=== PATIENT | female | born 2000 | race Caucasian/White ===

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

== ENCOUNTER 2023-02-22 16:15 | Emergency (ER) | payer MEDICAID, SELFPAY ==
[2023-02-22 16:16] VITALS: BP 118/72; PULSE 81; RESP 16; TEMP 36.3; O2SAT 100; BMI 21.7
--- NOTE | 2023-02-22 16:47 | EDS_ITS ---
HPI History of Present Illness Chief Complaint: Other, Pain/Inj Narrative Narrative: 22-year-old female with bilateral armpit pain. She has some bumps in her armpits. Patient states the bumps really started today but she had some itching in her armpits over the last week. She last shaved 2 weeks ago. No systemic signs or symptoms. Patient denies any breast pain or tenderness. She denies any new breast lumps. She feels otherwise well. She went to urgent care today and was referred to the ER. [facility] Home Medications doxycycline hyclate 100 mg capsule 100 mg PO BID #14 caps 02/22/23 [Rx Last Taken Unknown] Allergy/AdvReac Type Severity Reaction Status Date / Time No Known Allergies Allergy Verified 02/22/23 16:16 Social History Smoking Status: Never smoker ROS ROS ED Constitutional Constitutional ED: Denies chills, fever(s) or sweats Eyes Eyes: Denies blurry vision or change in vision ENT ENT ED: Denies ear pain or sore throat Cardiovascular Cardiovascular: Denies chest pain, palpitations or racing heartbeat Respiratory/Chest Respiratory/Chest: Denies cough, dyspnea or sputum Gastrointestinal Gastrointestinal: Denies abdominal pain, constipation, diarrhea, nausea or vomiting Genitourinary Genitourinary ED: Denies dysuria, hematuria or urinary frequency Musculoskeletal Musculoskeletal: Denies arthralgias, myalgias or neck pain Integumentary Reports rash and other; Denies abscess or Abrasions Neurologic Neurologic: Denies headache(s), paresthesias or weakness Psychiatric Psychiatric: Denies anxiety, depression, suicidal ideation or suicidal thoughts Endocrine Endocrinology: Denies polydipsia or polyuria EXAM Physical Exam Const Vital Signs: 02/22/23 16:16 02/22/23 16:25 Temperature 97.3 F L Temperature Source Temporal Pulse Rate 81 Respiratory Rate 16 Respiratory Effort Normal Non-Labored Respiratory Pattern Normal Blood Pressure 118/72 Blood Pressure Mean 87 Pulse Ox 100 Oxygen Delivery Method Room Air Positive well nourished General Appearance ED: NAD HEENT Reports moist mucous membranes Eyes PERRL and EOMs intact bilaterally Resp normal respiratory effort Cardio regular rate and regular rhythm Extremity Extremity Narrative: Bilateral axilla have some tenderness to palpation bilaterally. There is no deangelo thema, warmth. There are some areas of lymphadenopathy but no fluctuant masses. These are very small areas bilaterally. Hair in the axilla is partially grown. Neuro oriented x3 Sensorium / Orientation: alert Psych mental status grossly normal Skin Skin Narrative: As described above MDM MDM MDM Narrative Medical decision making narrative: Patient presenting with irritation to the axilla bilaterally. She shaved 2 weeks ago and has that she began her hair started, and it appears to be irritated. There does appear to be some lymphadenopathy. Patient is concerned that it could be due to her deodorant and she is having an inflammatory reaction to it. Patient states he is going to discontinue use of this. There is nothing to incise or drain here. I will start her on doxycycline and have her follow-up with general surgery. Return precautions were discussed. Impression: 1. Bilateral axillary folliculitis Lab Data Attestation: I reviewed the patient's lab results. Discharge Plan Triage Chief Complaint: Other, Pain/Inj ED Provider: Rojas Mendoza Dx/Rx/DC Orders Instructions: ED Folliculitis Prescriptions: New doxycycline hyclate 100 mg capsule 100 mg PO BID Qty: 14 0RF Primary Care Provider: Care Physician,No Primary Referrals: Fatou Mendoza MD [Med Staff - Active Staff] - 3-5 Days Care Physician,No Primary [Primary Care Provider] - Disposition Disposition: Home, Self Care
[2023-02-22 17:07] VITALS: RESP 16
== END 2023-02-22 17:09 | disposition home or self-care (01) ==
LOC: ED 17:07
PROVIDERS: Emergency Provider Student in an Organized Health Care Education/Training Program; Visit Provider Student in an Organized Health Care Education/Training Program
DX: L02.421 Furuncle of right axilla (principal); L02.422 Furuncle of left axilla
CPT/HCPCS: 99282

== ENCOUNTER 2023-06-23 16:17 | Emergency (ER) | payer MEDICAID, SELFPAY ==
[2023-06-23 16:18] VITALS: BP 131/77; PULSE 98; RESP 16; TEMP 36.7; O2SAT 100; BMI 21.5
--- NOTE | 2023-06-23 16:43 | CT_ITS ---
STUDY: CT ABDOMEN AND PELVIS WITH CONTRAST REASON FOR EXAM: Female, 22 years old. Right lower quadrant abdominal pain RADIATION DOSAGE (If Supplied By Facility): CTDIvol = ( 8.00 ) mGy, DLP = ( 291.70 ) mGycm TECHNIQUE: Transaxial images were obtained from the dome of the diaphragm to the symphysis pubis without oral contrast. Oral and amp; IV Gastrografin and amp; 75mL Isovue-370 was administered. Sagittal and coronal images were reconstructed. Individualized dose optimization techniques were used for this CT. COMPARISON: None. FINDINGS: The visualized lung bases are unremarkable. The visualized portions of the heart are within normal limits. Normal liver. Normal gallbladder and extrahepatic biliary system. Normal spleen. Normal pancreas. Normal bilateral adrenal glands. Normal right kidney. Normal left kidney. Normal visualized stomach. Normal small intestine. Moderate to abundant fecal debris within the colon. The appendix is visualized and appears normal. Normal abdominal aorta. Normal inferior vena cava. Normal retroperitoneum. Normal urinary bladder. The uterus is anteverted with IUD in place. Mild free fluid in the cul-de-sac. 2.8 cm hypoattenuated structure within the right ovary suggestive of cyst. Normal abdominal wall. Normal osseous structures. CT/Abdomen/Pelvis WITH Contrast IMPRESSION: Mild free fluid in the cul-de-sac with right ovarian cyst measuring 2.8 cm. Further characterization with pelvic ultrasound recommended if clinically indicated. No acute appendicitis or bowel obstruction. Normal abdominal viscera. Electronically Signed: Kiah Flanagan MD at 20:02 EST ,
--- OUTSIDE RECORDS SUMMARY | 2023-06-23 16:48 | XMS RPT_ITS | CCD ---
Author Name Unknown Address [id number] [place] [address] Organization [facility] Care Team Providers Care Shredder Operator Name Role Phone Unavailable Primary Care Provider Unavailmariam Aguilar MD, Vanda Camarillo Primary Care Provider [phone] Vanda Aguilar MD Primary Care Provider [phone] LEANA GALAN Referring Unavailable AGUILAR, VANDA Primary Care Unavailable LEANA GALAN Attending Unavailable AGUILAR, VANDA Primary Care Unavailable ROBYN SALES Attending Unavailable AGUILAR, VANDA Primary Care Unavailable LEANA GALAN Attending Unavailable LEANA GALAN Referring Unavailable AGUILAR, VANDA Primary Care Unavailable Unavailable Primary Care Provider UnavailEunice Cuello MD Primary Care Provider SAFKO, EUNICE L Primary Care Unavailable SAFKO, EUNICE L Referring Unavailable SAFKO, EUNICE L Primary Care Unavailable SAFKO, EUNICE L Attending Unavailable SAFKO, EUNICE L Referring Unavailable SAFKO, EUNICE L Primary Care Unavailable SAFKO, EUNICE L Attending Unavailable Allergies Allergy Classification Reported Allergen(s) Allergy Type Date of Onset Reaction(s) Facility (2 sources) Amoxicillin; Translations: [AMOXICILLIN] Drug Allergy 10-20-2022 Rash [facility] Medications Current Medications Medication Drug Class(es) Dates Sig (Normalized) Sig (Original) FLUoxetine 20 mg oral capsule (7 sources) Serotonin Reuptake Inhibitor Start: 08-14-2022 take 1 capsule by mouth once daily in the morning FLUoxetine (PROzac) 20 MG capsule Take 20 mg by mouth every morning. 0 08/14/2022 Active Completed/Discontinued Medications Medication Drug Class(es) Dates Sig (Normalized) Sig (Original) escitalopram 20 mg oral tablet (4 sources) Serotonin Reuptake Inhibitor Start: 05-26-2021 End: 08-21-2022 take 1 tablet by mouth in the morning escitalopram (Lexapro) 20 MG tablet Take 20 mg by mouth in the morning. 0 05/26/2021 08/21/2022 Discontinued (Therapy completed) Problems Active Problems Problem Classification Problem Date Documented Date Episodic/Chronic Cardiac dysrhythmias (1 source) Palpitations; Translations: [Palpitations] Onset: 04-20-2023 Episodic Esophageal disorders (2 sources) Gastroesophageal reflux disease without esophagitis; Translations: [Gastro-esophageal reflux disease without esophagitis] Onset: 05-01-2023 05-01-2023 Chronic Headache; including migraine (1 source) Headache; Translations: [Headache, unspecified headache type] 05-01-2023 Episodic Headache; including migraine (1 source) Headache; including migraine; Translations: [Headache, unspecified headache type] Onset: 05-01-2023 Immunizations and screening for infectious disease (3 sources) Viral screening status; Translations: [Encounter for screening for other viral diseases] Onset: 04-20-2023 05-01-2023 Episodic Nonmalignant breast conditions (1 source) Pain of breast; Translations: [Mastodynia] 01-17-2023 Episodic Other and unspecified benign neoplasm (4 sources) Fibroadenoma of breast; Translations: [Benign neoplasm of left breast] Episodic Other and unspecified benign neoplasm (2 sources) Fibroadenoma of left breast; Translations: [Benign neoplasm of left breast] 01-16-2023 Episodic Other female genital disorders (2 sources) Abnormal uterine and vaginal bleeding, unspecified; Translations: [Abnormal uterine and vaginal bleeding, unspecified] Onset: 08-21-2022 Chronic Other skin disorders (1 source) Localized swelling, mass and lump, upper limb, bilateral; Translations: [Localized superficial swelling, mass, or lump] 02-22-2023 Episodic Other skin disorders (1 source) Nonscarring hair loss, unspecified; Translations: [Hair loss] Onset: 04-20-2023 Episodic Other upper respiratory infections (1 source) Acute pharyngitis; Translations: [Acute pharyngitis, unspecified] Episodic Unclassified (2 sources) Breast Mass; Translations: [Breast Mass] Onset: 12-25-2022 Past or Other Problems Problem Classification Problem Date Documented Da te Episodic/Chronic Other and unspecified benign neoplasm (2 sources) Benign neoplasm of left breast; Translations: [Benign neoplasm of left breast] Onset: 08-21-2022 Episodic Results Test Name Value Interpretation Reference Range Facil ity Vital Signs Date Time Vital Sign Value Performing Clinician Ghulam lopez 05-01-2023 14:44-0500 Body height 154.9 cm Eunice Nur MD Work Phone: [facility] 05-01-2023 14:44-0500 Body weight 50.35 kg Eunice Nur MD Work Phone: [facility] 05-01-2023 14:44-0500 Diastolic blood pressure 74 mm[Hg] Eunice Nur MD Work Phone: [facility] 05-01-2023 14:44-0500 Heart rate 84 /min Eunice Nur MD Work Phone: [facility] 05-01-2023 14:44-0500 Respiratory rate 16 /min Eunice Nur MD Work Phone: [facility] 05-01-2023 14:44-0500 SaO2% (BldA) [Mass fraction] 99 % Eunice Nur MD Work Phone: [facility] 05-01-2023 14:44-0500 Systolic blood pressure 112 mm[Hg] Eunice Nur MD Work Phone: [facility] 02-22-2023 14:58-0400 Body temperature 98.91 [degF] Omega Wills RENAL CASE MANAGER.FRAME BUILDER Work Phone: [facility] 02-22-2023 14:58-0400 Body weight 51.71 kg Omega Wills RENAL CASE MANAGER.FRAME BUILDER Work Phone: [facility] 02-22-2023 14:58-0400 Diastolic blood pressure 64 mm[Hg] Omega Wills RENAL CASE MANAGER.FRAME BUILDER Work Phone: [facility] 02-22-2023 14:58-0400 Heart rate 72 /min Omega Wills RENAL CASE MANAGER.FRAME BUILDER Work Phone: [facility] 02-22-2023 14:58-0400 Respiratory rate 20 /min Omega Wills APRN.FRAME BUILDER Work Phone: [facility] 02-22-2023 14:58-0400 SaO2% (BldA) [Mass fraction] 99 % Omega Wills APRN.FRAME BUILDER Work Phone: [facility] 02-22-2023 14:58-0400 Systolic blood pressure 116 mm[Hg] Omega Wills APRN.FRAME BUILDER Work Phone: [facility] 01-11-2023 13:08-0400 Body height 154.9 cm Leana Galan MD Work Phone: [facility] 01-11-2023 13:08-0400 Body mass index (BMI) [Ratio] 20.78 kg/m2 Leana Galan MD Work Phone: [facility] 01-11-2023 13:08-0400 Body weight 49.9 kg Leana Galan MD Work Phone: [facility] 12-25-2022 14:21-0400 Body mass index (BMI) [Ratio] 20.78 kg/m2 Robyn Sales MD Work Phone: [facility] 12-25-2022 14:21-0400 Body weight 49.9 kg Robyn Sales MD Work Phone: [facility] 12-25-2022 14:21-0400 Diastolic blood pressure 62 mm[Hg] Robyn Sales MD Work Phone: [facility] 12-25-2022 14:21-0400 Heart rate 73 /min Robyn Sales MD Work Phone: [facility] 12-25-2022 14:21-0400 Systolic blood pressure 98 mm[Hg] Robyn Sales MD Work Phone: [facility] 08-21-2022 13:53-0400 Body height 154.9 cm Leana Galan MD Work Phone: [facility] 08-21-2022 13:53-0400 Body mass index (BMI) [Ratio] 20.41 kg/m2 Leana Galan MD Work Phone: [facility] 08-21-2022 13:53-0400 Body weight 48.99 kg Leana Galan MD Work Phone: [facility] 08-21-2022 13:53-0400 Diastolic blood pressure 77 mm[Hg] Leana Galan MD Work Phone: [facility] 08-21-2022 13:53-0400 Heart rate 67 /min Leana Galan MD Work Phone: [facility] 08-21-2022 13:53-0400 Systolic blood pressure 114 mm[Hg] Leana Galan MD Work Phone: [facility] 01-25-2022 19:11-0400 Body height 154.9 cm Suzette Dusz RENAL CASE MANAGER.FRAME BUILDER Work Phone: [facility] 01-25-2022 19:11-0400 Body temperature 98.6 [degF] Suzette Dusz RENAL CASE MANAGER.FRAME BUILDER Work Phone: [facility] 01-25-2022 19:11-0400 Body weight 48.08 kg Suzette Dusz RENAL CASE MANAGER.FRAME BUILDER Work Phone: [facility] 01-25-2022 19:11-0400 Diastolic blood pressure 72 mm[Hg] Suzette Dusz RENAL CASE MANAGER.FRAME BUILDER Work Phone: [facility] 01-25-2022 19:11-0400 Heart rate 60 /min Suzette Dusz RENAL CASE MANAGER.FRAME BUILDER Work Phone: [facility] 01-25-2022 19:11-0400 Respiratory rate 18 /min Suzette Dusz RENAL CASE MANAGER.FRAME BUILDER Work Phone: [facility] 01-25-2022 19:11-0400 SaO2% (BldA) [Mass fraction] 98 % Suzette Dusz RENAL CASE MANAGER.FRAME BUILDER Work Phone: [facility] 01-25-2022 19:11-0400 Systolic blood pressure 112 mm[Hg] Suzette Dusz RENAL CASE MANAGER.FRAME BUILDER Work Phone: [facility] Encounters Encounter Date Encounter Type Care Provider Facility Start: 05-01-2023 End: 05-02-2023 ambulatory EUNICE NUR Facility:[facility] Start: 05-01-2023 End: 05-01-2023 Patient encounter procedure Eunice Nur MD Work Phone: [facility] Procedures Date Procedure Procedure Detail Performing Clinician Start: 01-11-2023 Us breast uni real t emily with image limited Leana Galan MD Work Phone: Start: 01-25-2022 STREP A MOLECULAR (POC) [facility] Provider Plan of Treatment Date Care Activity Detail Author Start: 2052 Zoster Vaccines (1 of 2) Zoster Vaccines (1 of 2) [facility] Start: 01-01-2025 DTaP/Tdap/Td Vaccines (7 - Td or Tdap) DTaP/Tdap/Td Vaccines (7 - Td or Tdap) [facility] Start: 01-01-2025 Urine microalbumin profile DTaP,Tdap,Td Vaccine (7 - Td or Tdap) [facility] Start: 07-16-2023 End: 07-16-2023 Patient encounter procedure 07/16/2023 3:00 PM EST Appointment [facility] [address] [place] [address] [facility] Start: 05-19-2023 Chlamydia Screening (18-24) Chlamydia Screening (18-24) [facility] Start: 05-19-2023 GC (Gonorrhea) Screening (18-24) GC (Gonorrhea) Screening (18-24) [facility] Start: 05-01-2023 End: 07-31-2023 HERPES SIMPLEX TYPE 1 AND 2 IG [facility] Work Phone: Immunizations Immunization Date Immunization Notes Care Provider Fa cility 04-20-2023 influenza, injectabl e, quadrivalent, contains preservative Eunice Nur MD Work Phone: [facility] 07-05-2021 Pfizer SARS-CoV-2 Vaccination Leana Galan MD Work Phone: [facility] 06-07-2020 influenza, injectabl e, quadrivalent, preservative free Eunice Nur MD Work Phone: [facility] 06-07-2020 influenza virus vacc ine, unspecified formulation Leana Galan MD Work Phone: [facility] 01-27-2019 meningococcal B vacc ine, recombinant, OMV, adjuvanted Eunice Nur MD Work Phone: [facility] 08-14-2018 influenza, injectabl e, quadrivalent, preservative free Eunice Nur MD Work Phone: [facility] 08-14-2018 meningococcal B vacc ine, recombinant, OMV, adjuvanted Eunice Nur MD Work Phone: [facility] 08-14-2018 meningococcal polysaccharide (groups A, C, Y and W-135) diphtheria toxoid conjugate vaccine (MCV4P) Eunice Nur MD Work Phone: [facility] 06-21-2017 hepatitis A vaccine, pediatric/adolescent dosage, 2 dose schedule Eunice Nur MD Work Phone: [facility] 06-21-2017 Human Papillomavirus 9-valent vaccine Eunice Nur MD Work Phone: [facility] 01-01-2015 hepatitis A vaccine, pediatric/adolescent dosage, 2 dose schedule Eunice Nur MD Work Phone: [facility] 01-01-2015 HPV, unspecified formulation Eunice Nur MD Work Phone: [facility] 01-01-2015 meningococcal polysaccharide (groups A, C, Y and W-135) diphtheria toxoid conjugate vaccine (MCV4P) Eunice Nur MD Work Phone: [facility] 01-01-2015 tetanus toxoid, redu vicky diphtheria toxoid, and acellular pertussis vaccine, adsorbed Eunice Nur MD Work Phone: [facility] 09-03-2007 diphtheria, tetanus toxoids and acellular pertussis vaccine, unspecified formulation Eunice Nur MD Work Phone: [facility] 09-03-2007 measles, mumps and rubella virus vaccine Eunice Nur MD Work Phone: [facility] 09-03-2007 poliovirus vaccine, inactivated Eunice Nur MD Work Phone: [facility] 09-03-2007 varicella virus vaccine Fabian Nur MD Work Phone: [facility] 02-15-2005 measles, mumps and rubella virus vaccine Eunice Nur MD Work Phone: [facility] 02-15-2005 varicella virus vaccine Fabian Nur MD Work Phone: [facility] 02-22-2004 diphtheria, tetanus toxoids and acellular pertussis vaccine, unspecified formulation Eunice Nur MD Work Phone: [facility] 02-22-2004 haemophilus influenz ae type b conjugate and Hepatitis B vaccine Eunice Nur MD Work Phone: [facility] 02-22-2004 haemophilus influenz ae type b vaccine, PRP-T conjugate Eunice Nur MD Work Phone: [facility] 02-22-2004 hepatitis B vaccine, pediatric or pediatric/adolescent dosage Eunice Nur MD Work Phone: [facility] 02-22-2004 pneumococcal conjuga te vaccine, 7 valent Eunice Nur MD Work Phone: [facility] 02-22-2004 poliovirus vaccine, inactivated Eunice Nur MD Work Phone: [facility] 07-01-2003 diphtheria, tetanus toxoids and acellular pertussis vaccine, unspecified formulation Eunice Nur MD Work Phone: [facility] 06-11-2003 haemophilus influenz ae type b vaccine, PRP-T conjugate Eunice Nur MD Work Phone: [facility] 03-19-2003 pneumococcal conjuga te vaccine, 7 valent Eunice Nur MD Work Phone: [facility] 03-19-2003 poliovirus vaccine, inactivated Eunice Nur MD Work Phone: [facility] 02-16-2003 haemophilus influenz ae type b vaccine, PRP-T conjugate Euniec Nur MD Work Phone: [facility] 02-16-2003 poliovirus vaccine, inactivated Eunice Nur MD Work Phone: [facility] 01-13-2003 diphtheria, tetanus toxoids and acellular pertussis vaccine, unspecified formulation Eunice Nur MD Work Phone: [facility] 01-13-2003 pneumococcal conjuga te vaccine, 7 valent Eunice Nur MD Work Phone: [facility] 2002 hepatitis B vaccine, pediatric or pediatric/adolescent dosage Eunice Nur MD Work Phone: [facility] 2002 poliovirus vaccine, inactivated Eunice Nur MD Work Phone: [facility] 2002 diphtheria, tetanus toxoids and acellular pertussis vaccine, unspecified formulation Eunice Nur MD Work Phone: [facility] 2002 haemophilus influenz ae type b vaccine, PRP-T conjugate Eunice Nur MD Work Phone: [facility] 2002 hepatitis B vaccine, pediatric or pediatric/adolescent dosage Eunice Nur MD Work Phone: [facility] Payers Date Payer Category Payer Medicaid [id number] 2022 Medicaid [id number] 2021 Medicaid [id number] Social History Date Type Detail Facility [facility]: [facility] Start: 01-25-2022 Tobacco use and exposure Smoke less tobacco non-user [facility] Start: 2000 Sex Assigned At Not on file [facility] Start: 01-15-2022 End: 01-11-2023 Exposure to SARS-CoV-2 (event) Not sure [facility] Start: 08-21-2022 End: 01-11-2023 Alcohol intake Lifetime non-drinker (finding) [facility] Start: 2000 Sex Assigned At Female [facility] Start: 08-21-2022 End: 04-20-2023 History of Social function [facility] Start: 08-21-2022 End: 04-20-2023 Tobacco use panel [facility] Start: 03-30-2022 Gender identity Identifies as female gender (finding) [facility] Start: 03-30-2022 Sexual orientation Heterosexual (fin ding) [facility] Start: 05-01-2023 Alcohol intake Current drinke r of alcohol (finding) [facility] Adult Depression Screening Assessment 0 [facility] Start: 04-20-2023 Alcohol Comment rarely [facility] Clinical Notes 01-25-2022 to 05-01-2023 Patient InstructionsSaEunice neely MD - 05/01/2023 2:55 PM Omega Mullins APRN.FRAME BUILDER - 02/22/2023 3:17 PM EDTTelephone Encounter - Leana Galan MD - 01/17/2023 3:25 PM EDT Note Date & Type Note Facility 05-01-2023 Note HNO ID: [id number] Author: Eunice Nur MD Service: ? Author Type: Physician Type: Progress Notes Filed: 05/01/2023 3:31 PM Note Text: Eunice Nur [address] [place] [id number] Visit Date: May 01, 2023 Name: Ms.Amaya Graham Date of : 2000 MRN/E #: [id number] Chief Complaint: Headache (Follow up on new medication ) and Throat Problem (Feels like something is stuck in throat.) Nursing Intake: There are no exam notes on file for this visit. Subjective HPI Sam Graham is a 22 year old female. Headache This is a new problem. The current episode started more than 1 week ago. The problem occurs every few hours. The problem has not changed since onset.The pain is located in the Bilateral and frontal region. The pain is at a severity of 6/10. Associated symptoms include malaise/fatigue. Pertinent negatives include no anorexia, no fever, no chest pressure, no near-syncope, no orthopnea, no palpitations, no syncope, no shortness of breath, no nausea and no vomiting. She has tried triptan therapy for the symptoms. The treatment provided significant relief. Sore Throat This is a new problem. The current episode started 1 to 4 weeks ago. The problem has been unchanged. There has been no fever. Associated symptoms include headaches and trouble swallowing. Pertinent negatives include no abdominal pain, congestion, coughing, diarrhea, drooling, ear discharge, ear pain, hoarse voice, plugged ear sensation, neck pain, shortness of breath, stridor, swollen glands or vomiting. She has had no exposure to strep or mono. She has tried gargles for the symptoms. The treatment provided no relief. Headache is a pressure sensation. +globus sensation. Treated for strep which helped the pain. Tried numbing pain. ALLERGIES Allergen Reactions Amoxicillin Rash History reviewed. No pertinent past medical history. History reviewed. No pertinent surgical history. Social History Tobacco Use Smoking status: Never Smokeless tobacco: Never Vaping Use Vaping Use: Former Substances: Nicotine, THC, CBD, Flavoring Devices: Disposable, Pre-filled pod Substance Use Topics Alcohol use: Yes Comment: rarely Drug use: Not Currently FAMILY HISTORY Problem Relation Age of Onset Hypothyroidism Mother Diabetes Maternal Grandfather Kidney Disease Maternal Grandfather Review of Systems Constitutional: Positive for malaise/fatigue. Negative for chills and fever. HENT: Positive for sore throat and trouble swallowing. Negative for congestion, drooling, ear discharge, ear pain and hoarse voice. Respiratory: Negative for cough, shortness of breath, wheezing and stridor. Cardiovascular: Negative for chest pain, palpitations, orthopnea, syncope and near-syncope. Gastrointestinal: Negative for abdominal pain, anorexia, constipation, diarrhea, nausea and vomiting. Musculoskeletal: Negative for myalgias and neck pain. Neurological: Positive for headaches. Negative for dizziness. Current Outpatient Medications Medication Sig levonorgestrel (KYLEENA) 17.5 mcg/24 hrs (5 yrs) 19.5 mg IUD 1 Each by INTRAUTERINE route. SUMAtriptan (IMITREX) 50 mg tablet Take 1 tablet (50 mg) by mouth as needed for migraine headache (see administration instructions) (at onset of headache. May repeat after 2 hours.). May repeat dose after 2 hours if needed. Maximum daily dose is 200 mg per day. omeprazole (PRILOSEC) 40 mg capsule Take 1 capsule by mouth once daily. FLUoxetine (PROZAC) 10 mg capsule Take 1 capsule by mouth every morning. No current facility-administered medications for this visit. Objective BP 112/74 Pulse 84 Resp 16 Ht 5' 1 (1.55m) Wt 111 lb (50.3kg) SpO2 99% BMI 20.98 kg/(m2). Physical Exam Vitals reviewed. Constitutional: General: She is not in acute distress. HENT: Head: Normocephalic and atraumatic. Right Ear: External ear normal. Left Ear: External ear normal. Nose: Nose normal. Mouth/Throat: Pharynx: No oropharyngeal exudate. Eyes: General: No scleral icterus. Conjunctiva/sclera: Conjunctivae normal. Pupils: Pupils are equal, round, and reactive to light. Neck: Thyroid: No thyromegaly. Cardiovascular: Rate and Rhythm: Normal rate and regular rhythm. Heart sounds: Normal heart sounds. No murmur heard. No gallop. Pulmonary: Effort: Pulmonary effort is normal. No respiratory distress. Breath sounds: Normal breath sounds. No wheezing or rales. Abdominal: General: There is no distension. Palpations: Abdomen is soft. There is no mass. Tenderness: There is no abdominal tenderness. There is no guarding or rebound. Musculoskeletal: General: No tenderness. Normal range of motion. Cervical back: Normal range of motion and neck supple. Lymphadenopathy: Cervical: No cervical adenopathy. Skin: General: Skin is warm and dry. Findings: No erythema or rash. Neur (more content not included)... [facility] 05-01-2023 Instructions Eunice Nur MD - 05/01/2023 3:04 PM EST Images from the original note were not included. Gastroesophageal Reflux Disease (GERD) Heartburn is a burning sensation in the center of your chest that often occurs after you eat, bend over, exercise, and sometimes at night when you are lying down. Approximately one in 10 adults has heartburn at least once a week and one in three monthly. Some women experience heartburn almost daily as a result of increased pressure on the abdomen and hormonal changes. Despite its name, heartburn has nothing to do with your heart. Heartburn symptoms indicate a condition called gastroesophageal reflux disease, or GERD. This fact sheet offers some tips on how to relieve heartburn caused by this condition. What is GERD? When you swallow, food passes down your throat and through your esophagus to your stomach. A muscle called the lower esophageal sphincter controls the opening between the esophagus and the stomach. The muscle remains tightly closed except when you swallow food. When this muscle fails to close, the acid-containing contents of the stomach can travel back up into the esophagus. This backward movement is called reflux. When stomach acid enters the lower part of the esophagus, it can produce a burning sensation, commonly referred to as heartburn. Several factors might explain why this reflux action occurs and might offer some clues for relief. The most important are: The position of your body after eating (An upright posture helps prevent reflux.) The size of the meal (Smaller meals reduce reflux.) The nature of foods you consume (Certain substances that irritate the esophagus or weaken the sphincter can cause reflux.) How is GERD treated? To treat GERD, we recommend the following: Raise the head of your bed by six inches to allow gravity to help keep the stomach's contents in the stomach. (Do not use piles of pillows because this puts your body into a bent position that actually aggravates the condition by increasing pressure on the abdomen.) Eat meals at least three to four hours before lying down, and avoid bedtime snacks. Eat moderate portions of food and smaller meals. Maintain a healthy weight to eliminate unnecessary intra-abdominal pressure caused by extra pounds. Limit consumption of fatty foods, chocolate, peppermint, coffee, tea, cortez, and alcohol - all of which relax the lower esophageal sphincter. Also, avoid tomatoes and citrus fruits or juices, which contribute additional acid that can irritate the esophagus. Give up smoking, which also relaxes the lower esophageal sphincter. Wear loose belts and clothing. What if my GERD and heartburn persist? Many people will get relief from heartburn, and the pressure that goes with esophageal reflux, by following the tips above. [id number] liquid antacids can also help in treating occasional heartburn. If your symptoms persist, do not respond to treatment, or occur often, you need to see a doctor for testing and treatment. A visual examination of the esophagus, known as an endoscopy, might be necessary. Sometimes this test shows that the lining of the esophagus is severely inflamed and irritated by stomach acid. This condition, known as esophagitis, might lead to bleeding and difficulty in swallowing. Medical treatment for this condition might be necessary. This usually involves blocking acid production in the stomach. [id number]-[id number] medicines, such as Tums , Rolaids , Maalox , Zantac , Tagamet , Prilosec, ,Pepcid , and Axid , can generally relieve esophageal reflux symptoms. Patients with more severe symptoms or those who have been using antacids for more than two weeks should contact their doctors, who can prescribe medicines to control or eliminate acid, such as H2-receptor antagonists and proton pump inhibitors. Only a few people need surgery to correct the disorder. References [employer]. Acid Reflux Accessed 01/03/2016. [employer]. Gastroesophageal Reflux Disease (GERD) Accessed 01/03/2016. [employer]ive [employer]. Gastroesophageal Reflux (SHAWN) and Gastroesophageal Reflux Disease (GERD) Accessed 01/03/2016. Copyright 5527-9024 [facility]. All rights reserved This information is provided by the [facility] and is not intended to replace themedical advice of your doctor or health care provider. Please consult your health care provider for advice about a specific medical condition. For additional health information, please contact the Center for Consumer Health Information at the [facility] or toll-free extension [phone]. If you prefer, you may visit [email or web address] or [email or web address]. This document was last reviewed on: 2015 documented in this encounter [facility] 05-01-2023 History of Present illness Narrative Images from the original note were not included. Eunice Nur [address] [place] [id number] Visit Date: May 01, 2023 Name: Ms.Amaya Graham Date of : 2000 MRN/E #: [id number] Chief Complaint: Headache (Follow up on new medication ) and Throat Problem (Feels like something is stuck in throat.) Nursing Intake: There are no exam notes on file for this visit. Subjective HPI Sam Graham is a 22 year old female. Headache This is a new problem. The current episode started more than 1 week ago. The problem occurs every few hours. The problem has not changed since onset.The pain is located in the Bilateral and frontal region. The pain is at a severity of 6/10. Associated symptoms include malaise/fatigue. Pertinent negatives include no anorexia, no fever, no chest pressure, no near-syncope, no orthopnea, no palpitations, no syncope, no shortness of breath, no nausea and no vomiting. She has tried triptan therapy for the symptoms. The treatment provided significant relief. Sore Throat This is a new problem. The current episode started 1 to 4 weeks ago. The problem has been unchanged. There has been no fever. Associated symptoms include headaches and trouble swallowing. Pertinent negatives include no abdominal pain, congestion, coughing, diarrhea, drooling, ear discharge, ear pain, hoarse voice, plugged ear sensation, neck pain, shortness of breath, stridor, swollen glands or vomiting. She has had no exposure to strep or mono. She has tried gargles for the symptoms. The treatment provided no relief. Headache is a pressure sensation. +globus sensation. Treated for strep which helped the pain. Tried numbing pain. ALLERGIES Allergen Reactions Amoxicillin Rash History reviewed. No pertinent past medical history. History reviewed. No pertinent surgical history. Social History Tobacco Use Smoking status: Never Smokeless tobacco: Never Vaping Use Vaping Use: Former Substances: Nicotine, THC, CBD, Flavoring Devices: Disposable, Pre-filled pod Substance Use Topics Alcohol use: Yes Comment: rarely Drug use: Not Currently FAMILY HISTORY Problem Relation Age of Onset Hypothyroidism Mother Diabetes Maternal Grandfather Kidney Disease Maternal Grandfather Review of Systems Constitutional: Positive for malaise/fatigue. Negative for chills and fever. HENT: Positive for sore throat and trouble swallowing. Negative for congestion, drooling, ear discharge, ear pain and hoarse voice. Respiratory: Negative for cough, shortness of breath, wheezing and stridor. Cardiovascular: Negative for chest pain, palpitations, orthopnea, syncope and near-syncope. Gastrointestinal: Negative for abdominal pain, anorexia, constipation, diarrhea, nausea and vomiting. Musculoskeletal: Negative for myalgias and neck pain. Neurological: Positive for headaches. Negative for dizziness. Current Outpatient Medications Medication Sig levonorgestrel (KYLEENA) 17.5 mcg/24 hrs (5 yrs) 19.5 mg IUD 1 Each by INTRAUTERINE route. SUMAtriptan (IMITREX) 50 mg tablet Take 1 tablet (50 mg) by mouth as needed for migraine headache (see administration instructions) (at onset of headache. May repeat after 2 hours.). May repeat dose after 2 hours if needed. Maximum daily dose is 200 mg per day. omeprazole (PRILOSEC) 40 mg capsule Take 1 capsule by mouth once daily. FLUoxetine (PROZAC) 10 mg capsule Take 1 capsule by mouth every morning. No current facility-administered medications for this visit. Objective BP 112/74 Pulse 84 Resp 16 Ht 5' 1 (1.55m) Wt 111 lb (50.3kg) SpO2 99% BMI 20.98 kg/(m^2). Physical Exam Vitals reviewed. Constitutional: General: She is not in acute distress. HENT: Head: Normocephalic and atraumatic. Right Ear: External ear normal. Left Ear: External ear normal. Nose: Nose normal. Mouth/Throat: Pharynx: No oropharyngeal exudate. Eyes: General: No scleral icterus. Conjunctiva/sclera: Conjunctivae normal. Pupils: Pupils are equal, round, and reactive to light. Neck: Thyroid: No thyromegaly. Cardiovascular: Rate and Rhythm: Normal rate and regular rhythm. Heart sounds: Normal heart sounds. No murmur heard. No gallop. Pulmonary: Effort: Pulmonary effort is normal. No respiratory distress. Breath sounds: Normal breath sounds. No wheezing or rales. Abdominal: General: There is no distension. Palpations: Abdomen is soft. There is no mass. Tenderness: There is no abdominal tenderness. There is no guarding or rebound. Musculoskeletal: General: No tenderness. Normal range of motion. Cervical back: Normal range of motion and neck supple. Lymphadenopathy: Cervical: No cervical adenopathy. Skin: General: Skin is warm and dry. Findings: No erythema or rash. Neurological: Mental Status: She is alert and oriented to person, place, and time. Gait: Gait is intact. Psychiatric: Mood and Affect: Affect normal. New medication(s) prescribed today: Yes. Discussed new medication dosage, usage, goals of therapy, and side effects. Patient has been apprised of any potential drug interactions to be aware of. Patient expresses understanding. Return in about 4 weeks (around 05/29/2023). ASSESSMENT/PLAN: 1. Headache, unspecified headache type - ICD9: 784.0, ICD10: R51.9 (primary diagnosis) Acute, improving with Imitrex, continue Imitrex as needed, follow up 4 weeks 2. Gastroesophageal reflux disease without esophagitis - ICD9: 530.81, ICD10: K21.9 - Discussed lifestyle modifications including losing weight, limiting caffeine, no meals three hours before sleep, and head of bed elevation - Begin treatment with Prilosec 20 mg BID - Follow up in 4weeks - OMEPRAZOLE 40 MG CAPSULE,DELAYED RELEASE - OMEPRAZOLE 40 MG CAPSULE,DELAYED RELEASE 3. Special screening examination for viral disease - ICD9: V73.99, ICD10: Z11.59 Due for screening - HERPES SIMPLEX TYPE 1 AND 2 IG No problem-specific Assessment & Plan notes found for this encounter. I have confirmed and edited as necessary the past medical, family and social histories, HPI, and ROS obtained by others. The above diagnoses & plan of care have been created and agreed upon with the patient. This note was partially generated using [employer] voice recognition system, and there may be some incorrect words, spellings, and punctuation that were not noted in checking the note before saving. documented in this encounter [facility] 04-20-2023 Note HNO ID: [id number] Author: Eunice Nur MD Service: ? Author Type: Physician Type: Progress Notes Filed: 04/20/2023 4:13 PM Note Text: Eunice Nur [address] [place] [address] Visit Date: April 20, 2023 Name: Ms.Amaya Graham Date of : 2000 MRN/E #: [id number] Chief Complaint: Establish Care (Headaches, shaky /hungry , hair loss .) Nursing Intake: There are no exam notes on file for this visit. Subjective HPI Sam Graham is a 22 year old female. Headache This is a new problem. The current episode started more than 1 week ago. The problem occurs every few hours. The problem has not changed since onset.The pain is located in the Bilateral and frontal region. The pain is at a severity of 7/10. The pain does not radiate. Associated symptoms include anorexia, malaise/fatigue and palpitations. Pertinent negatives include no fever, no chest pressure, no near-syncope, no orthopnea, no syncope, no shortness of breath, no nausea and no vomiting. She has tried resting in a darkened room and acetaminophen for the symptoms. The treatment provided significant relief. +polyphagia. +tremors. +hair loss. Headache is a squeezing sensation. Palpitations with anxiety. Takes Benadryl and Pepcid during a headache to help her sleep. ALLERGIES Allergen Reactions Amoxicillin Rash History reviewed. No pertinent past medical history. History reviewed. No pertinent surgical history. Social History Tobacco Use Smoking status: Never Smokeless tobacco: Never Vaping Use Vaping Use: Former Substances: Nicotine, THC, CBD, Flavoring Devices: Disposable, Pre-filled pod Substance Use Topics Alcohol use: Yes Comment: rarely Drug use: Not Currently FAMILY HISTORY Problem Relation Age of Onset Hypothyroidism Mother Diabetes Maternal Grandfather Kidney Disease Maternal Grandfather Review of Systems Constitutional: Positive for malaise/fatigue. Negative for chills and fever. HENT: Negative for congestion. Respiratory: Negative for cough, shortness of breath and wheezing. Cardiovascular: Positive for palpitations. Negative for chest pain, orthopnea, syncope and near-syncope. Gastrointestinal: Positive for anorexia. Negative for abdominal pain, constipation, diarrhea, nausea and vomiting. Musculoskeletal: Negative for myalgias. Neurological: Positive for headaches. Negative for dizziness. Current Outpatient Medications Medication Sig FLUoxetine (PROZAC) 10 mg capsule Take 1 capsule by mouth every morning. levonorgestrel (KYLEENA) 17.5 mcg/24 hrs (5 yrs) 19.5 mg IUD 1 Each by INTRAUTERINE route. SUMAtriptan (IMITREX) 50 mg tablet Take 1 tablet (50 mg) by mouth as needed for migraine headache (see administration instructions) (at onset of headache. May repeat after 2 hours.). May repeat dose after 2 hours if needed. Maximum daily dose is 200 mg per day. escitalopram oxalate (LEXAPRO) 5 mg tablet Take 5 mg by mouth once daily. (Patient not taking: Reported on 02/22/2023) LIDOCAINE VISCOUS 2 % solution Gargle and spit with 5-10mL Q3H prn sore throat. (Patient not taking: Reported on 02/22/2023) No current facility-administered medications for this visit. Objective BP 130/77 Pulse 78 Temp 98.7 Resp 20 Ht 5' 1 (1.55m) Wt 113 lb (51.3kg) SpO2 100% BMI 21.36 kg/(m2). Physical Exam Vitals reviewed. Constitutional: General: She is not in acute distress. HENT: Head: Normocephalic and atraumatic. Right Ear: External ear normal. Left Ear: External ear normal. Nose: Nose normal. Mouth/Throat: Pharynx: No oropharyngeal exudate. Eyes: General: No scleral icterus. Conjunctiva/sclera: Conjunctivae normal. Pupils: Pupils are equal, round, and reactive to light. Neck: Thyroid: No thyromegaly. Cardiovascular: Rate and Rhythm: Normal rate and regular rhythm. Heart sounds: Normal heart sounds. No murmur heard. No gallop. Pulmonary: Effort: Pulmonary effort is normal. No respiratory distress. Breath sounds: Normal breath sounds. No wheezing or rales. Abdominal: General: There is no distension. Palpations: Abdomen is soft. There is no mass. Tenderness: There is no abdominal tenderness. There is no guarding or rebound. Musculoskeletal: General: No tenderness. Normal range of motion. Cervical back: Normal range of motion and neck supple. Lymphadenopathy: Cervical: No cervical adenopathy. Skin: General: Skin is warm and dry. Findings: No erythema or rash. Neurological: Mental Status: She is alert and oriented to person, place, and time. Gait: Gait is intact. Psychiatric: Mood and Affect: Affect normal. New medication(s) prescribed today: Yes. Discussed new medication dosage, usage, goals of therapy, and side effects. Patient has been apprised of any potential drug interactions to be aware of. Patient expresses understanding. Return in about 2 weeks (more content not included)... [facility] 02-22-2023 Note HNO ID: [id number] Author: Omega Wills APRN.FRAME BUILDER Service: ? Author Type: Nurse Practitioner Type: Progress Notes Filed: 02/22/2023 3:20 PM Note Text: Subjective HPI HPI Champion Day is a 22 year old female who presents today for CC of bilat painful arm pit lumps. This started today. Has been seen by bullet slugs inspector for breast lumps/ultrasound, reported not concerning. Denies fever, weight loss, . .Patient presents with: Armpit Pain and Lumps: Itching x a few weeks, lumps and pain today No past medical history on file. No past surgical history on file. ALLERGIES Patient has no known allergies. MEDICATIONS escitalopram oxalate (LEXAPRO) 5 mg tablet Take 5 mg by mouth once daily. (Patient not taking: Reported on 02/22/2023) LIDOCAINE VISCOUS 2 % solution Gargle and spit with 5-10mL Q3H prn sore throat. (Patient not taking: Reported on 02/22/2023) No family history on file. Social History Tobacco Use Smoking status: Never Smokeless tobacco: Never ROS Objective Blood pressure 116/64, pulse 72, temperature 37.2 ?C (98.9 ?F), resp. rate 20, weight 51.7 kg (114 lb), SpO2 99 %. Physical Exam Constitutional: General: She is not in acute distress. Appearance: She is not toxic-appearing or diaphoretic. HENT: Head: Normocephalic and atraumatic. Pulmonary: Effort: Pulmonary effort is normal. No accessory muscle usage or respiratory distress. Skin: Comments: Tender masses/nodes in bilat axilla. No erythema, rash, abscess. They are deep. Neurological: Mental Status: She is alert and oriented to person, place, and time. ASSESSMENT/PLAN: 1. Axillary lump, bilateral - ICD9: 782.2, ICD10: R22.33 I discussed options with patient Not able to get imaging today or for few days Patient very concerned, will go to ER for evaluation. Omega Wills APRN.[facility] 02-22-2023 History of Present illness Narrative Subjective HPI HPI Sam Graham is a 22 year old female who presents today for CC of bilat painful arm pit lumps. This started today. Has been seen by bullet slugs inspector for breast lumps/ultrasound, reported not concerning. Denies fever, weight loss, . .Patient presents with: Armpit Pain and Lumps: Itching x a few weeks, lumps and pain today No past medical history on file. No past surgical history on file. ALLERGIES Patient has no known allergies. MEDICATIONS escitalopram oxalate (LEXAPRO) 5 mg tablet Take 5 mg by mouth once daily. (Patient not taking: Reported on 02/22/2023) LIDOCAINE VISCOUS 2 % solution Gargle and spit with 5-10mL Q3H prn sore throat. (Patient not taking: Reported on 02/22/2023) No family history on file. Social History Tobacco Use Smoking status: Never Smokeless tobacco: Never ROS Objective Blood pressure 116/64, pulse 72, temperature 37.2 C (98.9 F), resp. rate 20, weight 51.7 kg (114 lb), SpO2 99 %. Physical Exam Constitutional: General: She is not in acute distress. Appearance: She is not toxic-appearing or diaphoretic. HENT: Head: Normocephalic and atraumatic. Pulmonary: Effort: Pulmonary effort is normal. No accessory muscle usage or respiratory distress. Skin: Comments: Tender masses/nodes in bilat axilla. No erythema, rash, abscess. They are deep. Neurological: Mental Status: She is alert and oriented to person, place, and time. ASSESSMENT/PLAN: 1. Axillary lump, bilateral - ICD9: 782.2, ICD10: R22.33 I discussed options with patient Not able to get imaging today or for few days Patient very concerned, will go to ER for evaluation. Omega Wills APRN.FRAME BUILDER documented in this encounter [facility] 01-17-2023 Note Referral placed for breast surgery consult [facility] 01-17-2023 Note Advised decrease caf feine, can try evening primrose and vit E Phone number for [facility] provided to patient for further evaluation Message routed to Dr Galan for Referral if needed. Thanks [facility] 01-17-2023 Telephone encounter Note Referral placed for breast surgery consult [facility] 01-17-2023 Miscellaneous Notes Referral placed for breast surgery consult Advised decrease caffeine, can try evening primrose and vit E Phone number for [facility] provided to patient for further evaluation Message routed to Dr Galan for Referral if needed. Thanks Name of caller: Champion Contact phone number: [phone] Relationship to Patient: patient Provider: Dr Galan Practice: [facility] Chief Complaint/Reason for Call: Pt states she is having pain where she has a cyst. Pt states she has mentioned this to the provider & the [employer] & advised to speak to Dr. Please advise Best time of day caller can be reached: Any Patient advised that office/PCP has 24-48 business hours to return their call: Yes documented in this encounter [facility] 01-17-2023 Telephone encounter Note Advised decrease caffeine, can try evening primrose and vit E Phone number for [facility] provided to patient for further evaluation Message routed to Dr Galan for Referral if needed. Thanks [facility] 01-17-2023 Telephone encounter Note Name of caller: Champion Contact phone number: [phone] Relationship to Patient: patient Provider: Dr Galan Practice: [facility] Chief Complaint/Reason for Call: Pt states she is having pain where she has a cyst. Pt states she has mentioned this to the provider & the [employer] & advised to speak to Dr. Please advise Best time of day caller can be reached: Any Patient advised that office/PCP has 24-48 business hours to return their call: Yes [facility] 12-25-2022 History of Present illness Narrative Images from the original note were not included. Sam Graham 12/25/2020 22 y.o. Chief Complaint Patient presents with Breast Mass Primary Care Physician: Vanda Aguilar MD HPI: Sam Graham is a 22 y.o. female presents for evaluation of breast mass Patient reports she had found a lump in 2020. EMR reviewed Breast US Report 2020: Targeted scanning at the site of palpable concern at 10:00, 4 cm from the nipple, demonstrates An oval hypoechoic mass with echogenic striations and vascularity, likely reflecting a fibroadenoma. It Measures 1.3 x 0.6 x 1.1 cm and is amenable to short-term surveillance. Left axillary surveillance was performed revealing no adenopathy. IMPRESSION: Small palpable left breast mass. Recommend short-term follow-up with ultrasound in six months. States past few months she has had sporadic tenderness around the lump, no correlation with her menses. Does not feel like mass has enlarged Past Medical History: Diagnosis Date Depression No past surgical history on file. Family History Problem Relation Name Age of Onset Kidney disease Maternal Grandfather stage 4 Depression Mother Anxiety disorder Mother OB History Para Term AB Living 0 0 0 0 0 0 SAB IAB Ectopic Multiple Live Births 0 0 0 0 0 MEDICATIONS: Current Outpatient Medications Medication Sig Dispense Refill FLUoxetine (PROzac) 20 MG capsule Take 20 mg by mouth every morning. Levonorgestrel (Kyleena) 19.5 MG intrauterine device 1 each by IntraUTERine route. No current facility-administered medications for this visit. ALLERGIES: Allergies as of 12/25/2022 (No Known Allergies) REVIEW OF SYSTEMS Review of Systems Respiratory: Negative for shortness of breath. Cardiovascular: Negative for chest pain. Genitourinary: Negative for menstrual problem. PHYSICAL EXAMINATION: BP 98/62 Pulse 73 Wt 110 lb (49.9 kg) BMI 20.78 kg/m Physical Exam Constitutional: General: She is not in acute distress. Appearance: Normal appearance. She is not ill-appearing, toxic-appearing or diaphoretic. HENT: Head: Normocephalic and atraumatic. Nose: Nose normal. Eyes: Extraocular Movements: Extraocular movements intact. Conjunctiva/sclera: Conjunctivae normal. Pupils: Pupils are equal, round, and reactive to light. Pulmonary: Effort: Pulmonary effort is normal. No respiratory distress. Chest: Breasts: Right: Normal. Musculoskeletal: Right lower leg: No edema. Left lower leg: No edema. Lymphadenopathy: Cervical: No cervical adenopathy. Upper Body: Right upper body: No supraclavicular or axillary adenopathy. Left upper body: No supraclavicular or axillary adenopathy. Skin: General: Skin is warm and dry. Coloration: Skin is not jaundiced. Neurological: General: No focal deficit present. Mental Status: She is alert and oriented to person, place, and time. Psychiatric: Mood and Affect: Mood normal. Behavior: Behavior normal. Thought Content: Thought content normal. Judgment: Judgment normal. ASSESSMENT: Diagnosis Plan 1. 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 Primary Care Physician: Vanda Aguilar MD Chief Complaint Patient presents with Annual Exam HPI : Sam Graham is a 22 y.o. female here for annual exam. __ Gynecologic History: Patient's last menstrual period was 08/16/2022. OB History Para Term AB Living 0 0 0 0 0 0 SAB IAB Ectopic Multiple Live Births 0 0 0 0 0 Past Medical History: Diagnosis Date Depression History reviewed. No pertinent surgical history. Family History Problem Relation Name Age of Onset Kidney disease Maternal Grandfather stage 4 Depression Mother Anxiety disorder Mother Social History Socioeconomic History Marital status: Single Spouse name: Not on file Number of children: Not on file Years of education: Not on file Highest education level: Not on file Occupational History Not on file Tobacco Use Smoking status: Never Smokeless tobacco: Never Substance and Sexual Activity Alcohol use: Never Drug use: Not on file Sexual activity: Yes Partners: Male control/protection: I.U.D. Comment: Michaelsergey (11/05/2020) Other Topics Concern Not on file Social History Narrative Not on file Social Determinants of Health Financial Resource Strain: Not on file Food Insecurity: Not on file Transportation Needs: Not on file Physical Activity: Not on file Stress: Not on file Social Connections: Not on file Intimate Partner Violence: Not on file Housing Stability: Not on file MEDICATIONS: Current Outpatient Medications Medication Sig Dispense Refill FLUoxetine (PROzac) 20 MG capsule Take 20 mg by mouth every morning. Levonorgestrel (Kyleena) 19.5 MG intrauterine device 1 each by IntraUTERine route. No current facility-administered medications for this visit. ALLERGIES: Allergies as of 08/21/2022 (No Known Allergies) REVIEW OF SYSTEMS: Constitutional: Negative for activity change, appetite change, fatigue, fever and unexpected weight change. Respiratory: Negative for cough and shortness of breath. Cardiovascular: Negative for chest pain. Gastrointestinal: Negative for abdominal distention, abdominal pain, blood in stool, constipation, diarrhea, nausea and vomiting. Endocrine: Negative for cold intolerance and heat intolerance. Genitourinary: Negative for difficulty urinating, dysuria, frequency, genital sores, hematuria and urgency. Musculoskeletal: Negative for gait problem, myalgias, neck pain and neck stiffness. Skin: Negative for color change, rash and wound. Neurological: Negative for dizziness, tremors, seizures, syncope, speech difficulty, weakness, numbness and headaches. Psychiatric/Behavioral: Negative for behavioral problems, confusion, sleep disturbance and suicidal ideas. The patient is not nervous/anxious. PHYSICAL EXAM: Vitals: 08/21/22 1353 BP: 114/77 Pulse: 67 Weight: 108 lb (49 kg) Height: 5' 1 (1.549 m) Body mass index is 20.41 kg/m . GENERAL EXAM CONSTITUTIONAL: Well developed, well nourished, well groomed. no acute distress ABDOMEN:soft, non-tender, non-distended, no hepatospleenomegaly NEUROLOGICAL: no gross motor or sensory deficits noted. . LYMPH NODES: no lymphadenapathy axillary SKIN: intact, dry MUSCULOSKELETAL: normal gait, no cyanosis. PSYCHIATRIC Normal mood and affect, A&O x3. PROFESSIONAL ORGANIZER: BREASTS: on the left breast there is a small approx 1 cm mobile mass at 10 oclockl; otherwise normal, no masses, tenderness or skin changes. EXTERNAL GENITALIA: normal female structures VAGINA: normal ruggae, no lesions CERVIX: strings visualized; no lesions, no cervical motion tenderness, normal appearance. UTERUS: normal mobility, nontender, normal size, shape and consistency. ADNEXA: normal, non tender no masses. URETHRA: normal. nontender BLADDER: non tender. PELVIC SUPPORT DEFECTS: Normal support of vagina, uterus, and bladder ANUS/PERINEUM: no hemorrhoids, masses or warts noted. ASSESSMENT/PLAN: Sam was seen today for annual exam. 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 In [facility] Breast usn ordered- pt had imaging in 2020 and did not follow up as recommended for 6 month surveillance FOLLOW UP Annually, or sooner if indicated. documented in this encounter [facility] 01-25-2022 Instructions Suzette Plascencia APRN.JEFFREY - 01/25/2022 7:26 PM EDT Come back for the lab order, as discussed. We will inform you of results. Supportive care is advised, such as nasal spray/ nasal saline, humidifier, good hand washing, increased fluids, OTC pain reliever, salt water gargles, tea with honey and lemon, and other measures as discussed. Follow-up with PCP in 5-7 days if symptoms persist; sooner for new or worsening symptoms. Strict ER precautions for chest pain, trouble breathing, and/or other emergent concerns. documented in this encounter [facility] 01-25-2022 History of Present illness Narrative This note was created using [employer]. Subjective Sam Graham is a 21 year old female. Patient reports sore and dry throat x30 days, worse x4 days. She has noticed blisters in the back of her throat. She did go to [facility] a week or two ago. She states that they told her it was PND with no recommended treatment. She has been taking occasional Tylenol. No known sick contacts. Patient declines Covid testing today. She denies fever, n/v/d, trouble breathing or swallowing, headache, and dizziness. Review of Systems Constitutional: Negative for appetite change, fatigue and fever. HENT: Positive for sore throat. Negative for congestion, drooling, ear pain, trouble swallowing and voice change. Respiratory: Negative for cough, shortness of breath and wheezing. Gastrointestinal: Negative for diarrhea, nausea and vomiting. Musculoskeletal: Negative for myalgias. Skin: Negative for rash. Allergic/Immunologic: Negative for immunocompromised state. Neurological: Negative for dizziness, weakness, numbness and headaches. Hematological: Negative for adenopathy. Psychiatric/Behavioral: Negative for confusion. Objective BP 112/72 Pulse 60 Temp 37 C (98.6 F) Resp 18 Ht 154.9 cm (5' 1 ) Wt 48.1 kg (106 lb) SpO2 98% BMI 20.03 kg/m Physical Exam Vitals and nursing note reviewed. Constitutional: General: She is not in acute distress. Appearance: Normal appearance. She is not ill-appearing or toxic-appearing. Comments: Patient in NAD, speaking in full sentences, and breathing is not labored HENT: Head: Normocephalic and atraumatic. Right Ear: Tympanic membrane, ear canal and external ear normal. There is no impacted cerumen. Left Ear: Tympanic membrane, ear canal and external ear normal. There is no impacted cerumen. Nose: Nose normal. Mouth/Throat: Mouth: Mucous membranes are moist. Pharynx: Oropharynx is clear. No oropharyngeal exudate or posterior oropharyngeal erythema. Comments: Tonsils with bump appearance, no blisters noted; clear airway with no swelling Eyes: Conjunctiva/sclera: Conjunctivae normal. Cardiovascular: Rate and Rhythm: Normal rate. Pulmonary: Effort: Pulmonary effort is normal. No respiratory distress. Breath sounds: Normal breath sounds. No wheezing or rales. Musculoskeletal: General: No swelling. Normal range of motion. Cervical back: Normal range of motion and neck supple. Skin: General: Skin is warm and dry. Coloration: Skin is not jaundiced or pale. Neurological: General: No focal deficit present. Mental Status: She is alert and oriented to person, place, and time. Motor: No weakness. Psychiatric: Mood and Affect: Mood normal. Behavior: Behavior normal. Thought Content: Thought content normal. Judgment: Judgment normal. Assessment and Plan MDM: Patient reports sore and dry throat x30 days, worse x4 days. She has noticed blisters in the back of her throat. She did go to [facility] a week or two ago. She states that they told her it was PND with no recommended treatment. She has been taking occasional Tylenol. No known sick contacts. Patient declines Covid testing today. BP 112/72 Pulse 60 Temp 37 C (98.6 F) Resp 18 Ht 154.9 cm (5' 1 ) Wt 48.1 kg (106 lb) SpO2 98% BMI 20.03 kg/m Upon exam, patient in NAD, speaking in full sentences, and breathing is not labored. Strep result is negative. Physical exam as documented and findings discussed with patient. Order placed for mono test and patient will return for blood draw tomorrow. We will inform her of results. Prescription for lidocaine viscous sent to pharmacy. Patient is stable, non-toxic, and in NAD. Discussed dosing and side effects of medications, home care instructions, and indications for follow-up and for ER visit. Patient states understanding and is agreeable to the plan. ASSESSMENT/PLAN: 1. Acute pharyngitis, unspecified etiology - ICD9: 462, ICD10: J02.9 - STREP A MOLECULAR (POC) - LIDOCAINE HCL 2 % MUCOSAL SOLUTION - MONOTEST, INFECTIOUS MONO - ESTABLISH WITH PRIMARY CARE - NEW PATIENT Come back for the lab order, as discussed. We will inform you of results. Supportive care is advised, such as nasal spray/ nasal saline, humidifier, good hand washing, increased fluids, OTC pain reliever, salt water gargles, tea with honey and lemon, and other measures as discussed. Follow-up with PCP in 5-7 days if symptoms persist; sooner for new or worsening symptoms. Strict ER precautions for chest pain, trouble breathing, and/or other emergent concerns. 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, left documented in this encounter [facility] note* Diagnosis Fibroadenoma of breast, left- Primary documented in this encounter [facility] note* Diagnosis Breast pain- Primary Mastodynia Fibroadenoma of breast, left documented in this encounter [facility] note* Diagnosis Axillary lump, bilateral- Primary documented in this encounter [facility] note* Diagnosis Headache, unspecified headache type- Primary Gastroesophageal reflux disease without esophagitis Esophageal reflux Special screening examination for viral disease Special screening examination for unspecified viral disease documented in this encounter [facility] for referral (narrative)* Consultation (Routine) - Pending Review Specialty Diagnoses / Procedures Referred By Urban chavarria Referred To Contact Breast Surgery / Breast Clinic / Breast Center Diagnoses Breast pain Fibroadenoma of breast, left Procedures [place] OFFICE/OUTPATIENT NEW HIGH [facility] 60-74 MINUTES Leana Galan MD [address] [place] [address] [address] [place] [address] [facility] Breast [address] [place] [address] Referral ID Status Reason Start Date Expiration Date Visits Requested Visits Authorized [id number] Pending Review Specialty Services Required 01/17/2023 01/17/2024 1 1 [facility] Summary Purpose Family History No Family History Records FoundNo Family History Records FoundNo Family History Records FoundNo Family History Records Found Advance Directives No Advanced Directives Records FoundNo Advanced Directives Records FoundNo Advanced Directives Records FoundNo Advanced Directives Records Found Reason for Referral Specialty Diagnoses / Procedures Referred By Urban t Referred To Contact Diagnoses Acute pharyngitis, unspecified etiology Procedures ESTABLISH WITH PRIMARY CARE NEW PATIENT OFFICE/OUTPATIENT NEW HIGH MDM 60-74 MINUTES Suzette Plascencia APRN.[facility] [address] [place] [address] Referral ID Status Reason Start Date Expiration Date Visits Requested Visits Authorized [id number] Authorized PCP Requested Referral 01/25/2022 01/25/2023 1 1 Additional Source Comments INFORMATION SOURCE (unrecogn ized section and content) DATE CREATED AUTHOR AUTHOR'S ORGANIZ ATION 07/26/2021 [facility] DATE CREATED AUTHOR AUTHOR'S ORGANIZ ATION 01/18/2023 [facility] DATE CREATED AUTHOR AUTHOR'S ORGANIZ ATION 05/06/2023 [facility] Source Comments (unrecognize d section and content) In the event this informatio n is protected by the Federal Confidentiality of Alcohol and Drug Abuse Patient Records regulations: The Federal rules restrict any use of the information to criminally investigate or prosecute any alcohol or drug abuse patient.[facility] the event this information is protected by the Federal Confidentiality of Alcohol and Drug Abuse Patient Records regulations: The Federal rules restrict any use of the information to criminally investigate or prosecute any alcohol or drug abuse patient.[facility] the event this information is protected by the Federal Confidentiality of Alcohol and Drug Abuse Patient Records regulations: The Federal rules restrict any use of the information to criminally investigate or prosecute any alcohol or drug abuse patient.[facility] Reason for Visit (unrecogniz ed section and content) Reason Comments Annual Exam Reason Comments Breast Mass Reason Onset Date Comments Breast Pain 01/17/2023 Still experienci ng pain where pt has cyst Reason Comments Armpit Pain and Lumps Itching x a few we eks, lumps and pain today Reason Comments Headache Follow up on new med ication Throat Problem Feels like something is stuck in throat. Care Teams (unrecognized sec tion and content) Shredder Operator Relationship Specialty Start Date End Date Vanda Aguilar MD [address] [place], [place] [phone] PCP - General 09/24/20 Shredder Operator Relationship Specialty Start Date End Date Vanda Aguilar MD [address] [facility] [place], [place] [phone] PCP - General 09/24/20 Shredder Operator Relationship Specialty Start Date End Date Vanda Aguilar MD [address] [facility] [address] [place], [place] [phone] PCP - General 09/24/20 Shredder Operator Relationship Specialty Start Date End Date Vanda Aguilar MD [address] [facility] [address] [place], [place] [phone] PCP - General 09/24/20 Shredder Operator Relationship Specialty Start Date End Date Eunice Nur MD [address] [id number] PCP - General Family Medicine 04/20/23 FOR RECORDS PERTAINING TO PATIENTS WHO ARE OR HAVE BEEN ENROLLED IN A CHEMICAL DEPENDENCY/SUBSTANCEABUSE PROGRAM, SOME INFORMATION MAY BE OMITTED. This clinical summary was aggregated from multiple sources. Caution should be exercised in using it in the provision of clinical care. This summary normalizes information from multiple sources, and as a consequence, information in this document may materially change the coding, format and clinical context of patient data. In addition, data may be omitted in some cases. CLINICAL DECISIONS SHOULD BE BASED ON THE PRIMARY CLINICAL RECORDS. [employer] [facility]. provides no warranty or guarantee of the accuracy or completeness of information in this document.
[2023-06-23 17:02] LABS: Absolute Lymphocyte Count 2.23 X10^3/uL (0.83-4.51); Absolute Neutrophil Count 7.1 X10^3/uL (2.0-7.7); Basophil# 0.04 X10^3/uL; Basophil% 0.4 % (0-1); Eosinophil# 0.19 X10^3/uL; Eosinophils% 1.8 % (0-5); Hematocrit 37.3 % (37-47); Hemoglobin 12.8 g/dL (12.0-15.0); Lymphocyte # 2.23 X10^3/ul (0.83-4.51); Lymphocyte % 21.2 % (19-41); Mean Corp Hgb Conc 34.3 g/dL (32-36); Mean Corpuscular Hgb 29.4 pg (27.0-32.0); Mean Corpuscular Volume 85.7 fL (81-99); Monocyte# 0.95 X10^3/uL; NRBC Flagged by Analyzer 0 % (0-5); Neutrophil # 7.07 X10^3/uL (2.7-7.7); Neutrophil % 67.4 % (47-70); Platelet Count 342 K/mm3 (150-450); RBC Distribution Width CV 12.3 % (11.6-14.6); RBC Distribution Width SD 39.1 fl (35.1-43.9); Red Blood Count 4.35 M/mm3 (4.2-5.4); White Blood Count 10.5 K/mm3 (4.4-11.0)
--- NOTE | 2023-06-23 17:02 | ED.VIS.GI ---
HPI HPI - GI History of Present Illness Chief Complaint: Abd Pain Abdominal Pain/Flank Pain Onset: Today Context: Sudden Onset Timing: Continuous Quality: Sharp Location: Diffuse and RLQ Worsened by: Movement Relieved by: - (Laying down) Nausea/Vomiting/Emesis GI Symptom: Positive for Nausea; Negative for Vomiting Diarrhea/Melena/Hematochezia GI Symptom: Negative for Diarrhea, Melena or Hematochezia Associated Symptoms Associated Symptoms: Negative for Dysuria, Frequency or Hematuria LMP: Approximately 1 month ago Narrative Narrative: Patient presents with abdominal pain that began today. Patient states it began rather suddenly. Patient states he woke up this morning and felt fine. Patient states that she urinated soon after waking up. Patient states that after that her pain came on rather suddenly. Patient states it was diffuse across her abdomen when it started but now it is mainly on the right side of her abdomen. Patient states she has normal appetite. Patient admits to some nausea but denies any vomiting. Patient states her pain is worse with certain movement. Patient states it is better when she is able to lay down. Patient denies any diarrhea, melena, or hematochezia. Patient denies any dysuria, frequency, or hematuria. Patient states her last menstrual period was approximately 1 month ago. PFSH PFSH Medical History no medical history no medical history Allergy/AdvReac Type Severity Reaction Status Date / Time No Known Allergies Allergy Verified 06/23/23 16:19 Surgical History no surgical history no surgical history Social History Smoking Status: Never smoker ROS ROS ED Constitutional Constitutional ED: Denies chills or fever(s) Eyes Eyes: Denies blurry vision or change in vision ENT ENT ED: Denies rhinorrhea or sore throat Cardiovascular Cardiovascular: Denies chest pain or palpitations Respiratory/Chest Respiratory/Chest: Denies cough or dyspnea Gastrointestinal Gastrointestinal: Reports abdominal pain and nausea; Denies diarrhea, melena or vomiting Genitourinary Genitourinary ED: Denies dysuria or hematuria Musculoskeletal Musculoskeletal: Denies back pain or neck pain Integumentary Denies abscess or rash Neurologic Neurologic: Denies headache(s) or weakness Allergic/Immunologic Allergic/Immunologic ED: Denies mouth swelling or urticaria EXAM Physical Exam Const Vital Signs: 06/23/23 16:18 Temperature 98.1 F Temperature Source Temporal Pulse Rate 98 Respiratory Rate 16 Blood Pressure 131/77 H Blood Pressure Mean 95 Pulse Ox 100 Oxygen Delivery Method Room Air Positive well nourished and well developed General Appearance ED: well developed and NAD HEENT Reports moist mucous membranes Neck supple and no JVD Resp normal respiratory effort and clear to auscultation bilaterally Cardio regular rate and regular rhythm GI non-distended Palpation: soft and tender LLQ, RLQ and suprapubic; Negative for guarding or rebound tenderness present Neuro CN's II-XII intact bilaterally, moves all extremities and no sensory deficits noted Sensorium / Orientation: alert Motor Exam: strength 5/5 throughout Psych mental status grossly normal MDM MDM MDM Narrative Medical decision making narrative: Differential diagnosis includes appendicitis, ovarian cyst, ectopic , ureteral calculus, pyelonephritis, gastroenteritis, colitis, and urinary tract infection. CBC will be obtained to assess for leukocytosis and anemia. Comprehensive metabolic profile will be obtained to assess for hepatic function, renal function, and electrolyte abnormality. Lipase will be obtained to assess for pancreatitis. Serum hCG will be obtained to assess for . Urinalysis will be obtained to assess for urinary tract infection and hematuria. CT scan of the abdomen pelvis will be obtained to assess for appendicitis, ureteral calculus, bowel obstruction, and perforation. Lab Data Attestation: I reviewed the patient's lab results. Lab results narrative: CBC was reviewed and was within normal limits. Comprehensive metabolic profile was reviewed and was within normal limits. Lipase was reviewed and was normal at 24. Serum hCG was reviewed and was negative. Urinalysis was reviewed. There is no evidence of urinary tract infection or hematuria. Labs: Laboratory Results - last 24 hr 06/23/23 06/23/23 16:45 17:05 WBC 10.5 RBC 4.35 Hgb 12.8 Hct 37.3 MCV 85.7 MCH 29.4 MCHC 34.3 RDW Std Deviation 39.1 RDW Coeff of Devin 12.3 Plt Count 342 MPV 9.0 Immature Gran % (Auto) 0.200 Neut % (Auto) 67.4 Lymph % (Auto) 21.2 Armstrong % (Auto) 9.0 Eos % (Auto) 1.8 Baso % (Auto) 0.4 Absolute Neuts (auto) 7.1 Absolute Lymphs (auto) 2.23 Nucleated RBC % 0 Sodium 140 Potassium 3.7 Chloride 109 H Carbon Dioxide 25.0 Anion Gap 6 BUN 13 Creatinine 0.78 Estim Creat Clear Calc 86.82 Est GFR (MDRD) Af Amer 121 Est GFR (MDRD) Non-Af 100 BUN/Creatinine Ratio 16.8 Glucose 75 Calcium 8.7 Total Bilirubin 0.40 AST 13 L ALT 15 Alkaline Phosphatase 58 Total Protein 7.0 Albumin 3.8 Globulin 3.2 Albumin/Globulin Ratio 1.2 Lipase 24 Serum , Qual NEGATIVE Urine Color Yellow Urine Clarity Clear Urine pH 5.0 Ur Specific [place] 1.020 Urine Protein Negative Urine Glucose (UA) Normal Urine Ketones Negative Urine Occult Blood 10 H Urine Nitrite Negative Urine Bilirubin Negative Urine Urobilinogen Normal Ur Leukocyte Esterase Negative Urine RBC 0 SEEN Urine WBC 0-5 SEEN Ur Squamous Epith Cells 5-10 SEEN Urine Bacteria 1+ Urine Mucus 0 SEEN Radiography Diagnostic Testing: Clinical Impression(s) from Imaging Studies Abdomen/Pelvis CT 06/23/23 16:43 IMPRESSION: Mild free fluid in the cul-de-sac with right ovarian cyst measuring 2.8 cm. Further characterization with pelvic ultrasound recommended if clinically indicated. No acute appendicitis or bowel obstruction. Normal abdominal viscera. Electronically Signed: Kiah Flanagan MD at 20:02 EST , CT scan of the abdomen pelvis was obtained. There is mild free fluid in the cul-de-sac with a right ovarian cyst measuring 2.8 cm. There is no evidence of appendicitis. There is no bowel obstruction. There is no perforation noted. This was interpreted by the radiologist and was also independently reviewed by myself. Treatment and Re-Evaluation :: Patient was given IV fluids. Patient was feeling better on reevaluation. Patient was advised of her findings. Patient was instructed to take ibuprofen as needed for pain. Patient was instructed to follow-up with her primary care physician in 5 to 7 days. Patient was instructed return if worse in any way. Patient understood and was agreeable with the plan. All questions were answered. Discharge Plan Triage Chief Complaint: Abd Pain ED Provider: Orville Kennedy Dx/Rx/DC Orders Clinical Impression: Abdominal pain, Right ovarian cyst Instructions: ED Ovarian Cyst Primary Care Provider: ATUL NUR Referrals: ATUL NUR [Other] - 5-7 Days Disposition Disposition: Home, Self Care
[2023-06-23] MEDS: 0.9% Normal Saline (1000mL) 1,000 ML 1000 ML IV (17:08)
[2023-06-23 17:17] LABS: Mucous, Urine 0 SEEN /hpf (<or=2+); Red Blood Cells-Urine 0 SEEN /hpf (0-5)
[2023-06-23 17:19] LABS: ALB/GLOB Ratio 1.2 RATIO (0.9-2.4); AST(SGOT) 13 U/L (15-37); Alanine Aminotransfer ALT/SGPT 15 U/L (13-56); Albumin, Serum 3.8 g/dL (3.2-5.0); Alkaline Phosphatase 58 U/L (45-117); Anion Gap 6 (5-15); BUN 13 mg/dL (7-18); BUN/Creat Ratio 16.8 RATIO (10-20); Calcium,Total 8.7 mg/dL (8.5-10.1); Chloride 109 mmol/L (98-107); Creatinine, Serum 0.78 mg/dL (0.55-1.02); EST Glomerular Filtration Rate 100 mL/min (>60); Est Glom Filt Rate - Afr Amer 121 mL/min (>60); Estimated Creatinine Clearance 86.82 ml/min; Globulin 3.2 g/dL (2.2-4.2); Glucose 75 mg/dL (74-106); Lipase 24 U/L (13-75); Potassium 3.7 mmol/L (3.5-5.1); Sodium Level 140 mmol/L (136-145)
[2023-06-23 17:20] LABS: Internal QC Validated? YES +Cl - CLEAR BKGD; Pregnancy, Serum, hCG Quali. NEGATIVE Negative
[2023-06-23 17:20] LABS: Color, Urine Yellow (Yellow); Glucose, Dipstick Normal (Normal); Ketone-Dipstick Negative (Negative); Leukocyte Esterase-Dipstick Negative /ul (Negative); Nitrite-Dipstick Negative (Negative); Occult Blood-Urine 10 /ul (Negative); Protein-Dipstick Negative (Negative); Urine Bilirubin Dipstick Negative (Negative); Urine Clarity Clear (Clear); Urine Urobilinogen Normal (Normal)
[2023-06-23 17:29] LABS: Bacteria 1+ /hpf (None Seen); Squamous Epithelial Cells - UA 5-10 SEEN /hpf (5-10); White Blood Cells 0-5 SEEN /hpf (0-5)
[2023-06-23 20:36] VITALS: BP 127/89; PULSE 69; RESP 14; O2SAT 99
== END 2023-06-23 20:42 | disposition home or self-care (01) ==
PROVIDERS: Emergency Provider Emergency Medicine; Visit Provider Emergency Medicine
DX: R10.9 Unspecified abdominal pain (principal); R11.0 Nausea; N83.201 Unspecified ovarian cyst, right side
CPT/HCPCS: 36415; 74177; 80053; 81001; 83690; 84703; 85025; 96360; 99283; J7030; Q9967; A4216